=== PATIENT | female | born 1975 | race Caucasian/White ===

== ENCOUNTER 2021-10-16 11:39 | Outpatient (CLI) | payer BC | END 2021-10-16 11:40 | disposition home or self-care (01) | LOC: CSHMAMMO 11:39 | PROVIDERS: ATTEND Obstetrics & Gynecology | DX: Z12.31 Encounter for screening mammogram for malignant neoplasm of breast (principal) | CPT/HCPCS: 77063; 77067 ==

== ENCOUNTER 2022-10-22 13:53 | Outpatient (CLI) | payer OTHER | END 2022-10-22 13:54 | disposition home or self-care (01) | LOC: CSHMAMMO 13:53 | PROVIDERS: ATTEND Obstetrics & Gynecology | DX: Z12.31 Encounter for screening mammogram for malignant neoplasm of breast (principal) | CPT/HCPCS: 77063; 77067 ==